=== PATIENT | male | born 1990 | race Caucasian/White ===

== ENCOUNTER 2017-09-06 09:53 | Day surgery (SDC) | payer SELFPAY ==
[2017-09-06] MEDS ORDERED: LEVAQUIN 250MG/50ML 250 MG/50 ML BAG IV ONE (10:00)
--- NOTE | 2017-09-06 10:27 | Anesthesia Consultation ---
Anesthesia Consult and Med Hx Date of service: 09/06/17 - Airway Anesthetic Teeth Evaluation: Good ROM Head & Neck: Adequate Mental/Hyoid Distance: Adequate Mallampati Class: Class I Intubation Access Assessment: Probably Good - Pulmonary Exam CTA: Yes - Cardiac Exam Cardiac Exam: RRR - Pre-Operative Health Status ASA Pre-Surgery Classification: ASA2 Proposed Anesthetic Plan: General - Pulmonary Hx Smoking: No Hx Sleep Apnea: No (PATTY PRE SCREEN LOW RISK) - Cardiovascular System Hx Hypertension: No - Gastrointestinal Hx Gastroesophageal Reflux Disease: Yes (reflux, takes tums. Gets it often ) - Other Systems Hx Substance Use: Yes (MARIJUANA 2-3 X PER WEEK. Last 2-3 days ago) Hx Cancer: No - Additional Comments Anesthesia Medical History Comments: when sleeps on back will snore.
--- NOTE | 2017-09-06 10:27 | Anesthesia Day of Surgery ---
Anesthesia Day of Surgery - Day of Surgery Patient Examined: Yes Patient H&P Reviewed: Yes Patient is NPO: Yes
[2017-09-06] MEDS ORDERED: NACL BACTERIOSTATIC INFILTRATI ONE (10:32)
[2017-09-06] MEDS ORDERED: MARCAINE 0.25% INFILTRATI ONE (10:49)
[2017-09-06] MEDS ORDERED: XYLOCAINE 1% 20 mL ONE (10:49)
[2017-09-06] MEDS ORDERED: VERSED IV NR (11:00)
[2017-09-06] MEDS ORDERED: PEPCID IV ONE (11:00)
[2017-09-06] MEDS ORDERED: NACL 0.9% 1000 ML 1,000 ML IV SCH (11:00)
[2017-09-06] MEDS ORDERED: XYLOCAINE MPF 2% ONE (11:38)
[2017-09-06] MEDS ORDERED: DIPRIVAN 10 MG/ML IV ONE (11:38)
[2017-09-06] MEDS ORDERED: DILAUDID ONE ×2 (11:56→12:11)
[2017-09-06] MEDS ORDERED: DECADRON ONE (12:08)
[2017-09-06] MEDS ORDERED: ZOFRAN ONE (12:42)
[2017-09-06] MEDS ORDERED: NACL 0.9% IR ONE (13:00)
[2017-09-06] MEDS ORDERED: TORADOL ONE (13:18)
--- NOTE | 2017-09-06 13:25 | Post Operative Note ---
Date of procedure: 09/06/17 Pre-op diagnosis: r testicular mass Post-op diagnosis: same Findings: as above Procedure: r rad orch Anesthesia: GETA Surgeon: JONATHAN ZARAGOZA Estimated blood loss: minimal Pathology: list (r testes) Specimen disposition: to lab Condition: stable Disposition: PACU
--- NOTE | 2017-09-06 13:27 | Discharge Summary ---
Short Stay Discharge Plan Activity: other (no straining .. ice packs ) Weight Bearing Status: Full Weight Bearing Diet: regular Wound: open to air (in 48 hours ) Special Instructions: other (local care neosporin bid in 48 hrs ) Durable Medical Equipment Needed Upon Discharge: other (ice packs ) Follow up with: JONATHAN ZARAGOZA MD [Staff Physician] - 7 Days
[2017-09-06] MEDS: DILAUDID IV PRN ×2 (13:45→14:15)
[2017-09-06] MEDS ORDERED: DEMEROL IV PRN (13:46)
[2017-09-06] MEDS ORDERED: DEMEROL ONE (13:54)
--- NOTE | 2017-09-06 14:17 | Post Anesthesia Evaluation ---
- Post Anesthesia Evaluation Patient Participated: Yes Airway Patent: Yes Stable Respiratory Function: Yes Nausea/Vomiting: No Temp > 96.8F: Yes Pain Manageable: Yes Adequeate Hydration: Yes Anesthesia Complications: No Block Receding Appropriately: Not Applicable Patient on Ventilator: No
[2017-09-06 14:48] VITALS: BP 122/63
--- NOTE | 2017-09-06 17:02 | Operative Report ---
PREOPERATIVE DIAGNOSES: Large right testicular mass, very elevated hCG and tumor markers. POSTOPERATIVE DIAGNOSES: Large right testicular mass, very elevated hCG and tumor markers. PROCEDURE: Right inguinal exploration, right radical orchiectomy. SURGEON: Jay Jay Balderrama MD ANESTHESIA: General. FINDINGS: This is a gentleman with scrotal mass, he has for about a year. His markers were elevated, now presents for treatment. He has retroperitoneal adenopathy. DESCRIPTION OF PROCEDURE: The patient was brought and placed on the operating table. Following induction of anesthesia, placed in the supine position, prepped and draped in usual sterile fashion. An oblique incision was made over the inguinal ring. He was muscular and tight, but we carried this down through the Shweta's fascia was thickened and to the external oblique aponeurosis. This was opened. The cord was identified. There was slight weakness in the floor, but no sac was noted. At this point, the cord was isolated into three segments. The external epigastric vessels were doubly tied. The vas was isolated and triply tied with silk and Vicryl as was the cord. At that point, once this was , the testis was delivered and gubernaculum and surrounding attachments were tied and the testicle was removed. The patient tolerated the procedure well. Wound was irrigated. Minimal blood loss. External oblique fascia was approximated with 2-0 Vicryl. The patient tolerated the procedure well. No significant complications. Superficial fascia with 3-0 Vicryl and skin with clips. He was brought to recovery room. Family notified, in stable condition. JOB# [id number] Paula/NAOMI
== END 2017-09-06 16:15 | disposition home or self-care (01) ==
LOC: OR 09:53
PROVIDERS: ATTEND Urology
DX: D40.11 Neoplasm of uncertain behavior of right testis (principal); N50.89 Other specified disorders of the male genital organs; K21.9 Gastro-esophageal reflux disease without esophagitis; Z88.0 Allergy status to penicillin
CPT/HCPCS: 54530; 88309; 88341; 88342; J1100; J1170; J1885; J1956; J2175; J2250; J2405; J2704; J7030